=== PATIENT | female | born 1960 | race Caucasian/White ===

== ENCOUNTER 2017-05-07 17:07 | Observation (INO) | payer OTHER ==
[~2017-05-07] VITALS: Ht 167.6 cm; Wt 81.8 kg
[2017-05-07 18:25] LABS: BASOPHILS 0.2 % (0-2); EOSINOPHILS 1.2 % (0-7); HEMATOCRIT 46.5 % (36.0-48.0); HEMOGLOBIN 15.5 g/dL (12-16); IMMATURE GRANULOCYTES 0.2 % (0-5); LYMPHOCYTES 15.7 % (15-50); MCH 30.6 pg (26.0-34.0); MCHC 33.3 g/dL (31.0-37.0); MCV 91.9 fL (80.0-100.0); MEAN PLATELET VOLUME 11.5 fL (7.4-10.4); MONOCYTES 2.9 % (2-11); NEUTROPHILS 79.8 % (40-80); PLATELET COUNT 199 10x3/uL (130-400); RBC 5.06 10x6/uL (4.00-5.40); RDW 13.3 % (11.5-14.5); WBC 10.4 10x3/uL (4.8-10.8)
[2017-05-07 18:52] LABS: ALBUMIN 3.7 g/dL (3.4-5.0); ALKALINE PHOSPHATASE 138 U/L (46-116); ALT (SGPT) 38 U/L (10-68); CALC OSMOLALITY 279 mosm/kg (275-300); CALCIUM 9.5 mg/dL (8.5-10.1); CARBON DIOXIDE 24.1 mmol/L (21.0-32.0); CHLORIDE - SERUM 101 mmol/L (98-107); CREATININE - SERUM 0.8 mg/dL (0.6-1.3); GLUCOSE 115 mg/dL (74-106); POTASSIUM - SERUM 3.9 mmol/L (3.5-5.1); PROTEIN - SERUM 7.5 g/dL (6.4-8.2); SODIUM 140 mmol/L (136-145); UREA NITROGEN 12 mg/dL (7-18); eGFR NON AFRICAN AMERICAN 78 mL/min (90-120)
[2017-05-07 21:26] LABS: APPEARANCE HAZY (CLEAR); BILIRUBIN NEGATIVE (NEGATIVE); COLOR DK YELLOW (YELLOW); GLUCOSE NEGATIVE (NEGATIVE); KETONE NEGATIVE (NEGATIVE); LEUKOCYTE ESTERASE 1+ (NEGATIVE); NITRITE NEGATIVE (NEGATIVE); PROTEIN TRACE mg/dL (NEGATIVE); SPECIFIC GRAVITY 1.025 (1.005-1.020); UROBILINOGEN NORMAL (NORMAL)
[2017-05-07 21:27] LABS: BACTERIA MANY /hpf (NONE SEEN); RED CELLS - URINE OCC /hpf (0-5)
--- NOTE | 2017-05-08 00:25 | NUR ---
REPORT RECEIVED FROM ARMIDA PAIGE
--- NOTE | 2017-05-08 00:45 | NUR ---
ARRIVED TO FLOOR FROM ER VIA STRETCHER. ORIENTED TO UNIT, CALL LIGHT IN REACH. WILL CONTINUE TO MONITOR. SEE NURSE ASSESSMENT.
[2017-05-08] MEDS ORDERED: COZAAR50 MG PO (00:58)
[2017-05-08 01:46] VITALS: BP 110/65; BMI 29.3
[2017-05-08 05:56] VITALS: BP 118/64
[2017-05-08 08:57] VITALS: BP 102/59
--- NOTE | 2017-05-08 09:46 | NUR ---
CALLED TO INFORM THAT WAS CONSULTED FOR PATIENT, HOWEVER DOES NOT COME TO [facility] ANYMORE AND THAT THE CONSULT HAD TO BE CHANGED TO . SPOKE WITH ARMIDA.
--- NOTE | 2017-05-08 12:29 | NUR ---
PATIENT WITH VISITORS AT BEDSIDE. FRESH ICE WATER PROVIDED. CALL LIGHT WITHIN REACH. FLUIDS INFUSING ORDERED.
--- NOTE | 2017-05-08 13:05 | NUR ---
MEDICATED FOR PAIN AT THIS TIME. NO DISTRESS.
[2017-05-08 13:34] VITALS: BP 120/78
[2017-05-08 14:19] VITALS: Ht 167.6 cm; Wt 81.8 kg
[2017-05-08 16:38] VITALS: BP 105/57
[2017-05-08 21:02] VITALS: BP 108/63
[2017-05-09 01:00] VITALS: BP 106/64
[2017-05-09 03:10] LABS: BASOPHILS 0.1 % (0-2); EOSINOPHILS 1.7 % (0-7); HEMATOCRIT 40.3 % (36.0-48.0); HEMOGLOBIN 13.2 g/dL (12-16); IMMATURE GRANULOCYTES 0.1 % (0-5); LYMPHOCYTES 20.2 % (15-50); MCH 30.3 pg (26.0-34.0); MCHC 32.8 g/dL (31.0-37.0); MCV 92.4 fL (80.0-100.0); MEAN PLATELET VOLUME 11.3 fL (7.4-10.4); MONOCYTES 9.7 % (2-11); NEUTROPHILS 68.2 % (40-80); PLATELET COUNT 167 10x3/uL (130-400); RBC 4.36 10x6/uL (4.00-5.40); RDW 13.2 % (11.5-14.5); WBC 6.9 10x3/uL (4.8-10.8)
[2017-05-09 03:29] LABS: ALKALINE PHOSPHATASE 100 U/L (46-116); BILIRUBIN - TOTAL 0.43 mg/dL (0.2-1.3); CALCIUM 8.2 mg/dL (8.5-10.1); CARBON DIOXIDE 26.3 mmol/L (21.0-32.0); CHLORIDE - SERUM 106 mmol/L (98-107); CREATININE - SERUM 0.8 mg/dL (0.6-1.3); GLUCOSE 86 mg/dL (74-106); POTASSIUM - SERUM 4.2 mmol/L (3.5-5.1); PROTEIN - SERUM 6.5 g/dL (6.4-8.2); SODIUM 139 mmol/L (136-145); eGFR NON AFRICAN AMERICAN 78 mL/min (90-120)
[2017-05-09 03:30] LABS: ALBUMIN 2.6 g/dL (3.4-5.0); ALT (SGPT) 24 U/L (10-68); CALC OSMOLALITY 274 mosm/kg (275-300); UREA NITROGEN 8 mg/dL (7-18)
[2017-05-09 04:21] VITALS: BP 123/69
--- NOTE | 2017-05-09 05:43 | NUR ---
RESTING IN BED WITH NO DISTRESS. IVF INFUSING. PT WILL BEGIN GOLYTELY PREP THIS AM.
[2017-05-09 08:00] VITALS: BP 112/60
--- NOTE | 2017-05-09 08:15 | NUR ---
ZOEY STARTED KURT SHELL
--- NOTE | 2017-05-09 08:18 | NUR ---
UP IN CHAIR EATING BRK. IV PATENT. CALL LIGHT IN REACH. WILL CONT. PLAN OF CARE.
--- NOTE | 2017-05-09 12:00 | NUR ---
PT DRANK ABOUT 100CC GOLYTLE PT STATES SHE IS SIPPIN ON IT CAN NOT DO FASTER WILL SUMAYA
[2017-05-09 12:43] VITALS: BP 107/67
[2017-05-09 16:00] VITALS: BP 144/70
--- NOTE | 2017-05-09 19:30 | NUR ---
ASSESSMENT COMPLETE PER FLOWSHEET. STATES I CANT DRINK THIS GOLYTE WITH WATER CAN WE MIX IT WITH SOMETHING ELSE.
[2017-05-09 20:00] VITALS: BP 135/73
--- NOTE | 2017-05-09 20:00 | NUR ---
1/2 GOLYTE MIXED WITH GATORADE. STATES MUCH BETTER. CONTINUES TO DRINK PREP.
--- NOTE | 2017-05-10 | NUR ---
INSTRUCT PT NPO FOR COLONOSCOPY.
[2017-05-10 04:20] VITALS: BP 131/68
--- NOTE | 2017-05-10 05:06 | NUR ---
SLEEPING NO DISTRESS NOTED. SR UP X 2.
[2017-05-10 05:10] LABS: INR 1.02 (0.85-1.17); PROTIME 13.2 SECONDS (11.6-15.0)
[2017-05-10 05:12] LABS: CALC OSMOLALITY 279 mosm/kg (275-300); CALCIUM 8.1 mg/dL (8.5-10.1); CARBON DIOXIDE 26.2 mmol/L (21.0-32.0); CHLORIDE - SERUM 108 mmol/L (98-107); CREATININE - SERUM 0.7 mg/dL (0.6-1.3); GLUCOSE 82 mg/dL (74-106); POTASSIUM - SERUM 4.2 mmol/L (3.5-5.1); SODIUM 142 mmol/L (136-145); UREA NITROGEN 7 mg/dL (7-18); eGFR NON AFRICAN AMERICAN > 90 mL/min (90-120)
--- NOTE | 2017-05-10 05:58 | NUR ---
AWAKEN, STATES STOOL IS CLEAR NOW. NPO FOR COLONOSCOPY.
--- NOTE | 2017-05-10 07:15 | NUR ---
PT TRANSFERED TO GI LAB VIA BED, NAD NOTED.
[2017-05-10 08:00] VITALS: BP 122/56
--- NOTE | 2017-05-10 09:50 | NUR ---
PT RECEIVED BACK TO ROOM 2127 VIA BED, VITAL SIGNS STABLE, PT DENIES ANY NEEDS AT THIS TIME. FAMILY AT BEDSIDE, CALL LIGHT IN REACH, NAD NOTED, WILL CONTINUE TO MONITOR.
[2017-05-10 12:30] VITALS: BP 120/73
--- NOTE | 2017-05-10 13:59 | NUR ---
Nutrition Follow Up: Pt remains on clear liquid diet. Wt stable. +BM 05/10/17. Labs reviewed. Meds noted including NS @ 75 ml/hr, Flagyl. Rec advancing diet as tolerated when medically feasible. RD following.
[2017-05-10 15:38] VITALS: BP 140/48
[2017-05-10] MEDS ORDERED: FLAGYL500 MG PO (16:01)
[2017-05-10] MEDS ORDERED: LEVAQUIN750 MG PO (16:01)
--- NOTE | 2017-05-10 16:03 | NUR ---
CALLED DR. BURTON AND SPOKE WITH CRISTIAN HER NURSE. TOLD CRISTIAN TO ASK DR. BURTON IF PT WAS OKAY FOR D/C. CRISTIAN STATED THAT DR. BURTON STATED THAT SHE PT COULD BE D/C AND TO FOLLOW UP WITH PRIMARY DOCTOR.
--- NOTE | 2017-05-10 18:04 | NUR ---
PROVIDED VERBAL AND WRITTEN DISCHARGE TEACHING TO PT AND . PT AND VERBALIZED UNDERSTANDING REGARDING TEACHING. D/C LT HAND IV, TIP INTACT. PT WILL NOTIFY NURSE OR NEONATAL SURGEON WHEN READY FOR WHEELCHAIR, NAD NOTED, WILL CONTINUE TO MONITOR.
--- NOTE | 2017-05-10 18:58 | NUR ---
PT LEFT UNIT VIA WHEELCHAIR, ACCOMPANIED BY FAMILY, NAD NOTED.
--- NOTE | 2017-05-11 17:03 | OP ---
PATIENT NAME: YESSI CHERRY MEDICAL RECORD: [id number] :62 LOCATION:D.M2 D.2128 ADMISSION DATE:05/07/17 SURGEON: DIOGO BURTON MD DATE OF OPERATION: 05/10/2017 PROCEDURE: Attempted colonoscopy with biopsy. ATTENDING PHYSICIAN: Yissel Gerber DO INDICATIONS: Ms. Cherry is a pleasant 57-year-old woman who presented with symptoms of abdominal pain. She was in [place] and had a colonoscopy 2 years ago with partial colon resection due to noncancerous large polyp. She does have a history of diverticulitis in the past. CT of the abdomen and pelvis during ER evaluation showed possible colitis with thickening of the sigmoid colon with dilation of the proximal colon. She presents for inpatient colonoscopy. PREMEDICATIONS: Total IV anesthesia (propofol 150 mg). INSTRUMENT: Olympus video colonoscope. PROCEDURE AND FINDINGS: After receiving informed consent, Ms. Cherry was placed in left lateral decubitus position, sedated as per anesthesia. After achieving adequate level of sedation, digital rectal exam was performed that showed a few small external hemorrhoidal tags. No fissure or fistulas, normal sphincter tone, no palpable rectal masses. Colonoscope was introduced per rectally and advanced to approximately 30 cm. Beginning at 25 cm, the colonic mucosa was very edematous and with patches of erythema, "quite swollen." I was unable to safely pass the colonoscope beyond the mid sigmoid colon. Multiple biopsies were taken from the sigmoid colon secondary to the severe edema. Diverticula were not appreciated on this exam. Retroflexion in rectum showed mild internal hemorrhoids, good prep was present. Ms. Cherry tolerated the procedure well, no immediate complications. ASSESSMENT: Suspected segmental colitis, possibly diverticulitis. RECOMMENDATIONS: 1. Continue on clear liquid diet. 2. Continue Levaquin and Flagyl. 3. Follow up histopathology. 4. Surgery consultation for opinion. TRANSINT:[id number] Voice Confirmation ID: [id number] DOCUMENT ID: [id number] DIOGO BURTON MD at 1703 CC: YISSEL GERBER DO and YOHSI VASQUES MD [id number] DICTATION DATE: 05/10/17 0905 LANGUAGE TUTOR: 05/10/17 1119 DIS IN 05/10/17 [facility] [address] [place] [address]
== END 2017-05-10 19:12 | disposition home or self-care (01) ==
LOC: OBSVTIME → D.ER 17:07 → D.M2 23:42 → OBSVTIME 23:42 → D.ER 05-08 00:08 → D.M2 05-08 00:08
PROVIDERS: Emergency Medicine; Internal Medicine Gastroenterology; Physician Assistant; ADMIT Family Medicine
DX: K52.9 Noninfective gastroenteritis and colitis, unspecified (principal); K57.32 Diverticulitis of large intestine without perforation or abscess without bleeding; F41.9 Anxiety disorder, unspecified; Z72.0 Tobacco use; I10 Essential (primary) hypertension